=== PATIENT | female | born 1965 | race Caucasian/White ===

== ENCOUNTER → 2019-10-30 | Day surgery (SDC) | payer BC ==
[~2019-10-30] MED LIST: CALCIUM; FENTANYL CITRATE/PF 100MCG/2 ML INJ ONE; FIBER TABS625 MG PO; GLUCAGON FOR INJ 1 MG VIAL ONE; HYOSCYAMINE 0.125 MG TAB ONE; MIDAZOLAM HCL 2 MG/2 ML VIAL ONE; MULTIVITAMIN; PROPOFOL IV EMULSION 10 MG/ML 20 ML VIAL ONE; PROPOFOL IV EMULSION 10 MG/ML 50 ML VIAL ONE; Z.0.ACIPHEX20 MG PO
[2019-10-30 10:50] VITALS: BP 120/80
--- NOTE | 2019-10-30 17:18 | Operative Report ---
DATE OF PROCEDURE: 10/30/2019 SURGEON: Jakob Farris MD PROCEDURE: Colonoscopy with polypectomy. INDICATIONS FOR COLONOSCOPY: Surveillance colonoscopy, personal history of colon polyps. MEDICATIONS: The patient was done under MAC, please see anesthesiologist's note. PROCEDURE IN DETAIL: With the patient in left lateral decubitus position, a flexible fiberoptic Olympus colonoscope was inserted into the rectum with ease and advanced all the way to the cecum. The scope was then withdrawn slowly mucosa overlying the cecum and ascending colon appeared to be within normal limits. A minute polyp was hot biopsied from the distal transverse colon. Diverticular disease was noted to involve the distal descending and the sigmoid colon. The rectum appeared to be within normal limits. The scope was then retroflexed into the distal rectum and small internal hemorrhoids were noted, none of which was actively bleeding. The scope was then straightened out, it was subsequently withdrawn. The patient tolerated the procedure well. IMPRESSION: 1. Transverse colon polyp, hot biopsied. 2. Diverticulosis. 3. Internal hemorrhoids, none actively bleeding. PLAN: 1. Follow up histology. 2. Initiate high-fiber, low-fat diet. 3. Initiate high-fiber supplement. 4. The patient might benefit from a followup colonoscopy in 5 years. Jakob Farris MD [facility] [place] /[id number] cc: Violet Steel MD
== END | disposition home or self-care (01) ==
LOC: OR 06:55
PROVIDERS: ATTEND Internal Medicine Gastroenterology
DX: Z12.11 Encounter for screening for malignant neoplasm of colon (principal); D12.3 Benign neoplasm of transverse colon; K21.9 Gastro-esophageal reflux disease without esophagitis; K57.30 Diverticulosis of large intestine without perforation or abscess without bleeding; K64.8 Other hemorrhoids; R03.0 Elevated blood-pressure reading, without diagnosis of hypertension; M85.80 Other specified disorders of bone density and structure, unspecified site; Z86.010 Personal history of colon polyps; Z68.25 Body mass index [BMI] 25.0-25.9, adult; Z01.810 Encounter for preprocedural cardiovascular examination
CPT/HCPCS: 45384; 93005; J1610; J2250; J2704 ×2; J3010; 45378

== ENCOUNTER → 2025-03-28 | Day surgery (SDC) | payer BC ==
[~2025-03-28] MED LIST changes: +BENEFIBER1 EAC1 PO; -CALCIUM; +CALCIUM PO; +FISH OIL PO; -GLUCAGON FOR INJ 1 MG VIAL ONE; -HYOSCYAMINE 0.125 MG TAB ONE; +HYOSCYAMINE SULFATE 0.5 MG/ML INJ ONE; +LACTATED RINGER'S 1,000 ML ONE; +LIDOCAINE HCL 2% LOCAL INJ 5 ML SDV VIAL INJ ONE; +MULTI-VITAMIN1 EACH PO; +ONDANSETRON HCL INJ 2MG/ML 2ML 2 MG/ML VIAL ONE; -PROPOFOL IV EMULSION 10 MG/ML 20 ML VIAL ONE; -PROPOFOL IV EMULSION 10 MG/ML 50 ML VIAL ONE; +PROPOFOL IV EMULSION 50 ML IV ONE
[2025-03-28 11:45] VITALS: BP 108/61; PULSE 86; RESP 18; O2SAT 97
== END | disposition home or self-care (01) ==
LOC: OR 07:21
PROVIDERS: ATTEND Internal Medicine Gastroenterology
DX: K57.30 Diverticulosis of large intestine without perforation or abscess without bleeding (principal); K58.8 Other irritable bowel syndrome; K64.8 Other hemorrhoids; Z86.0100 Personal history of colon polyps, unspecified; Z01.810 Encounter for preprocedural cardiovascular examination
CPT/HCPCS: 45378; 93005; J1980; J2003; J2250; J2405; J2704; J3010; J7121